=== PATIENT | female | born 1960 | race Caucasian/White ===

== ENCOUNTER → 2016-11-14 | Outpatient (CLI) | payer BC ==
[2016-11-14 13:12] LABS: Basophils % (A) 1 %; CH 30.9; CHCM 33.8; Eosinophils # (A) 0.1 k/uL (0-0.7); Eosinophils % (A) 3 %; HCT 38.6 % (34.0-46.0); HDW 2.59; HGB 13.1 gm/dL (11.4-16.0); Luc # (Auto) 0.09; Luc % (Auto) 2; Lymphocytes # (A) 1.6 k/uL (1.0-4.8); Lymphocytes % (A) 38 %; MCH 31.2 pg (25.0-35.0); MCHC 33.9 g/dL (31.0-37.0); MCV 91.8 fL (80.0-100.0); Mean Platelet Volume 7.7; Monocytes # (A) 0.3 k/uL (0-1.0); Monocytes % (A) 6 %; Neutrophils % (A) 50 %; WBC 4.1 k/uL (3.8-10.6); WBC (Perox) 4.41
[2016-11-14 13:13] LABS: ALT 36 U/L (9-52); AST 25 U/L (14-36); Alkaline Phosphatase 89 U/L (38-126); Anion Gap 11 mmol/L; Blood Urea Nitrogen 11 mg/dL (7-17); Calcium 9.8 mg/dL (8.4-10.2); Carbon Dioxide 26 mmol/L (22-30); Chloride 105 mmol/L (98-107); Cholesterol 207 mg/dL (<200); Glucose 88 mg/dL (74-99); HDL Cholesterol 86 mg/dL (40-60); Non-African American GFR(MDRD) >60 (>60 ml/min/1.73 sqM); Potassium 4.8 mmol/L (3.5-5.1); Sodium 142 mmol/L (137-145); Total Bilirubin 0.5 mg/dL (0.2-1.3); Total Protein 6.7 g/dL (6.3-8.2); Triglycerides 115 mg/dL (<150)
== END | disposition home or self-care (01) ==
LOC: LABWHC1 11:48
PROVIDERS: ATTEND Nurse Practitioner
DX: E78.2 Mixed hyperlipidemia (principal); Z13.21 Encounter for screening for nutritional disorder; Z13.1 Encounter for screening for diabetes mellitus; Z13.0 Encounter for screening for diseases of the blood and blood-forming organs and certain disorders involving the immune mechanism
CPT/HCPCS: 36415; 80053; 80061; 82306; 84443; 85025

== ENCOUNTER → 2017-01-06 | Outpatient (CLI) | payer BC ==
--- NOTE | 2017-01-06 13:24 | BD ---
EXAMINATION TYPE: MG DEXA axial skeleton. DATE OF EXAM: 01/06/2017 COMPARISON: NONE CLINICAL HISTORY: Postmenopausal female Height: 67.2 IN Weight: 221 LBS FRAX RISK QUESTIONS: Alcohol (3 or more units per day): YES Family History (Parent hip fracture): NO Glucocorticoids (More than 3mos): NO (Ex: prednisone, prednisolone, methylprednisolone, dexamethasone, and hydrocortisone). History of Fracture in Adulthood: NO Secondary Osteoporosis: 1. Type 1 Diabetes: NO 2. Hyperthyroidism: NO 3. Menopause before 45: YES AGE 39 4. Malnutrition: NO 5. Chronic liver disease: NO Rheumatoid Arthritis: NO Current Tobacco Use: NO RISK FACTORS HISTORY OF: Active: YES Diet low in dairy products/other sources of calcium: YES Postmenopausal woman: AGE 39 Take estrogen and/or progesterone medications: How lon - 2009 MEDICATIONS: Additional Medications: CALCIUM, VIT D, CYMBALTA, ABILIFY, CHOLESTEROL MEDS EXAM MEASUREMENTS: Bone mineral densitometry was performed using the [employer] System. Bone mineral density as measured about the Lumbar spine is: ----- L1-L4(G/cm2): 1.197 T Score Values are as follows: ----- L2: -0.7 ----- L3: 0.7 ----- L4: 1.0 ----- L1-L4: 0.1 Bone mineral density BASELINE Bone mineral density about the R hip (g/cm2): 0.961 Bone mineral density about the L hip (g/cm2): 0.929 T Score values are as follows: -----R Neck: -0.6 -----L Neck: -0.8 -----R Total: -0.3 -----L Total: 0.1 Bone mineral density BASELINE IMPRESSION: No evidence for osteoporosis or osteopenia. NOTE: T-SCORE=SD OF THE YOUNG ADULT MEAN.
--- NOTE | 2017-01-08 10:20 | MM ---
Reason for exam: screening (asymptomatic). Last mammogram was performed 1 year and 1 month ago. History: Patient is postmenopausal. Family history of breast cancer in maternal aunt at age 60 and breast cancer in sister at age 52. Took estrogen for 10 years beginning at age 39. Physical Findings: A clinical breast exam by your physician is recommended on an annual basis and results should be correlated with mammographic findings. MG Screening Mammo w CAD Bilateral CC and MLO view(s) were taken. Prior study comparison: December 19, 2015, bilateral MG screening mammo w CAD. December 11, 2014, bilateral MG screening mammo w CAD. October 03, 2013, bilateral MG screening mammo w CAD. There are scattered fibroglandular densities. No significant changes when compared with prior studies. ASSESSMENT: Benign, BI-RAD 2 RECOMMENDATION: Routine screening mammogram of both breasts in 1 year.
== END | disposition home or self-care (01) ==
LOC: RADMAMWWP 09:15
PROVIDERS: ATTEND Family Medicine
DX: Z12.31 Encounter for screening mammogram for malignant neoplasm of breast (principal); E55.9 Vitamin D deficiency, unspecified; Z78.0 Asymptomatic menopausal state
CPT/HCPCS: 77080

== ENCOUNTER → 2018-02-19 | Outpatient (CLI) | payer BC ==
[2018-02-19 10:53] LABS: Basophils % (A) 0 %; Eosinophils # (A) 0.1 k/uL (0-0.7); Eosinophils % (A) 2 %; HCT 42.4 % (34.0-46.0); HGB 13.3 gm/dL (11.4-16.0); Lymphocytes # (A) 1.7 k/uL (1.0-4.8); Lymphocytes % (A) 42 %; MCH 28.5 pg (25.0-35.0); MCHC 31.3 g/dL (31.0-37.0); MCV 90.8 fL (80.0-100.0); Mean Platelet Volume 7.5; Monocytes # (A) 0.2 k/uL (0-1.0); Monocytes % (A) 5 %; Neutrophils % (A) 48 %; Platelet Count 258 k/uL (150-450); RBC 4.66 m/uL (3.80-5.40); RDW 13.3 % (11.5-15.5); WBC 4.1 k/uL (3.8-10.6)
[2018-02-19 12:00] LABS: Albumin 4.4 g/dL (3.5-5.0); Calcium 9.9 mg/dL (8.4-10.2); Potassium 4.1 mmol/L (3.5-5.1); Total Bilirubin 0.6 mg/dL (0.2-1.3)
== END ==
LOC: LABWHC1 10:05
PROVIDERS: ATTEND Nurse Practitioner
DX: Z00.00 Encounter for general adult medical examination without abnormal findings (principal); Z13.1 Encounter for screening for diabetes mellitus; Z13.0 Encounter for screening for diseases of the blood and blood-forming organs and certain disorders involving the immune mechanism
CPT/HCPCS: 36415; 80053; 80061; 84443; 85025

== ENCOUNTER → 2018-03-12 | Outpatient (CLI) | payer BC ==
--- NOTE | 2018-03-16 09:01 | MM ---
Reason for exam: screening (asymptomatic). Last mammogram was performed 1 year and 2 months ago. History: Patient is postmenopausal. Family history of breast cancer in maternal aunt at age 60 and breast cancer in sister at age 52. Took estrogen for 10 years beginning at age 39. Physical Findings: A clinical breast exam by your physician is recommended on an annual basis and results should be correlated with mammographic findings. MG 3D Screening Mammo W/Cad Bilateral CC and MLO view(s) were taken. Prior study comparison: January 06, 2017, bilateral MG screening mammo w CAD. December 19, 2015, bilateral MG screening mammo w CAD. The breast tissue is heterogeneously dense. This may lower the sensitivity of mammography. Dense tissues are present in the subareolar regions on a background of scattered densities. No significant changes when compared with prior studies. ASSESSMENT: Negative, BI-RAD 1 RECOMMENDATION: Routine screening mammogram of both breasts in 1 year.
== END | disposition home or self-care (01) ==
LOC: RADMAMWWP 12:50
PROVIDERS: ATTEND Family Medicine
DX: Z12.31 Encounter for screening mammogram for malignant neoplasm of breast (principal)
CPT/HCPCS: 77063; 77067

== ENCOUNTER → 2019-08-25 | Outpatient (CLI) | payer BC ==
--- NOTE | 2019-08-25 11:58 | CT ---
EXAMINATION TYPE: CT abdomen pelvis w con DATE OF EXAM: 08/25/2019 COMPARISON: None INDICATION: Lower abdominal pain. DLP: 949 mGycm, Automated exposure control for dose reduction was used. CONTRAST: 100ml mL of Isovue 300. Study performed with Oral Contrast TECHNIQUE: Axial images were obtained from above the diaphragm to the pubic rami in the axial plane a t 5 mm thick sections. Reconstructed images are reviewed on the computer in the coronal plane. FINDINGS: Limited CT sections are obtained the lung bases. The lung bases are clear. CT ABDOMEN: Liver: 0.9 cm cyst in the lateral right liver. Spleen: Normal Pancreas: Normal Adrenal glands: The adrenal glands are normal. Gallbladder: Normal Kidneys: No masses are evident. No hydronephrosis is present. No cysts are present. Delayed images were obtained through the kidneys, which remain unremarkable. Aorta: Vascular calcification is within the aorta. Inferior vena cava: Normal. CT PELVIS: Loops of bowel within the abdomen and pelvis are normal. There are loops of bowel which are incom pletely distended or lack oral contrast limiting their evaluation. Appendix: Not clearly identified. No suspicious inflammatory changes or dilated tubular structures ar e evident. Urinary bladder: Normal. Genitourinary structures: Uterus and ovaries are not identified. Osseous structures: No suspicious lytic or sclerotic lesions. Sacroiliac joints have mild degenerativ e change. IMPRESSIONS: 1. No suspicious acute changes CT abdomen pelvis. 2. Mild diverticulosis without acute diverticulitis sigmoid colon
== END | disposition home or self-care (01) ==
LOC: RADCTMAIN 10:01
PROVIDERS: ATTEND Surgery
DX: K57.30 Diverticulosis of large intestine without perforation or abscess without bleeding (principal)
CPT/HCPCS: 74177; Q9967

== ENCOUNTER → 2019-09-23 | Outpatient (CLI) | payer BC | LOC: LABWHC1 07:41 | PROVIDERS: ATTEND Surgery | DX: Z11.59 Encounter for screening for other viral diseases (principal) | CPT/HCPCS: 87635 ==

== ENCOUNTER 2019-09-26 08:26 | Day surgery (SDC) | payer BC ==
[2019-09-23 13:00] VITALS: BMI 28.1
[~2019-09-26 08:26] MED LIST: LACTATED RINGERS 1,000 ML IV SCH; LIDOCAINE 1% (10MG/ML) FOR IV START INTRADERMA PRN
[2019-09-26 08:48] VITALS: RESP 18; TEMP 97.8
[2019-09-26] MEDS ORDERED: LACTATED RINGERS 1,000 ML IV ONE ×2 (08:53→09:41)
[2019-09-26] MEDS ORDERED: IV FLUID CONTINUATION 1,000 ML IV ONE (09:41)
[2019-09-26] MEDS ORDERED: PROPOFOL 10 MG/ML 20 ML VIAL IV ONE (09:56)
[2019-09-26] MEDS ORDERED: LIDOCAINE 1% INJ 10MG/ML (20 ML MDV) ONE (09:56)
--- NOTE | 2019-09-26 10:09 | P.GSHP ---
History of Present Illness H&P Date: 09/26/19 Chief Complaint: Change in bowel habits, family history colon cancer, abdominal pain, narrow 59-year-old female seen in the office about one month ago. Patient has had 2 months worth of constipation, narrow stools, diminished appetite. Some increasing fatigue. Feels bloated. Concerned because her mother has a history of colon cancer. She has a history of adenomatous polyps last colonoscopy 5 years ago. CAT scan performed recently showed no acute abnormalities. Past Medical History Past Medical History: GERD/Reflux, Hyperlipidemia, Seizure Disorder Additional Past Medical History / Comment(s): ESSENTIAL TREMORS, LAST SEIZURE 5 YEARS AGO AFTER COLONOSCOPY.,STATES HAVING PAIN IN ABDOMEN & BACK AND CONSTIPATION. History of Any Multi-Drug Resistant Organisms: None Reported Past Surgical History: Appendectomy, Hysterectomy, Orthopedic Surgery Additional Past Surgical History / Comment(s): LEFT ROTATOR CUFF, LEFT KNEE ARTH ROSCOPY., COLONOSCOPY Additional Past Anesthesia/Blood Transfusion Reaction / Comment(s): PATIENT HAD SEIZURE AFTER COLONOSCOPY PROCEDURE 5 YEARS AGO ([facility] BY [facility]UL[facility]) Past Psychological History: Depression Smoking Status: Former smoker Past Alcohol Use History: Occasional Additional Past Alcohol Use History / Comment(s): QUIT SMOKING IN 1999, SMOKED 1 PPD, STARTED SMOKING AGE 13. Past Drug Use History: None Reported - Past Family History Mother Family Medical History: Cancer Additional Family Medical History / Comment(s): COLON CANCER Father Family Medical History: Cancer Additional Family Medical History / Comment(s): LUNG CANCER Sister(s) Family Medical History: Cancer Additional Family Medical History / Comment(s): BREAST CANCER Medications and Allergies Home Medications Medication Instructions Recorded Confirmed Type DULoxetine HCL [Cymbalta] 60 mg PO HS 02/09/15 09/26/19 History Simvastatin [Zocor] 20 mg PO HS 02/09/15 09/26/19 History Calcium Chewable 1 dose PO DAILY 09/23/19 09/26/19 History Multivit with Calcium,Iron,Min 1 each PO DAILY 09/23/19 09/26/19 History [Women's Multivitamin] Pantoprazole Sodium [Protonix] 40 mg PO DAILY 09/23/19 09/26/19 History Topiramate [Topamax] 50 mg PO BID 09/23/19 09/26/19 History Allergies Allergy/AdvReac Type Severity Reaction Status Date / Time No Known Allergies Allergy Verified 09/23/19 12:32 Surgical - Exam Vital Signs Temp Pulse Resp BP Pulse Ox 97.8 F 68 18 130/83 98 09/26/19 08:46 09/26/19 08:46 09/26/19 08:46 09/26/19 08:46 09/26/19 08:46 Physical exam: General: Well-developed, well-nourished HEENT: Normocephalic, sclerae nonicteric Abdomen: Nontender, nondistended Extremities: No edema Neuro: Alert and oriented Assessment and Plan (1) Change in bowel habits Narrative/Plan: Will proceed with colonoscopy at this time. Current Visit: Yes Status: Acute Code(s): R19.4 - CHANGE IN BOWEL HABIT SNOMED Code(s): 259219777
--- NOTE | 2019-09-26 10:22 | P.PCN ---
Date of Procedure: 09/26/19 Procedure(s) Performed: PREOPERATIVE DIAGNOSIS: Change in bowel habits, family history of colon cancer, narrow stools, decreased appetite, history of adenoma POSTOPERATIVE DIAGNOSIS: Minimal diverticulosis PROCEDURE: Colonoscopy ANESTHESIA: MAC SURGEON: Ryder Mcnally M.D. SPECIMENS: None ENDOSCOPIC PROCEDURE: The patient was placed on the endoscopy table in the left decubitus position. The Olympus colonoscope was inserted into the anus and passed under direct visualization to the base of the cecum. The appendiceal orifice was visualized. From that point the scope was slowly withdrawn inspecting all surfaces carefully. There were no neoplastic inflammatory or polypoid lesions throughout the cecum, ascending, transverse, descending, sigmoid and rectum. There was at all sigmoid diverticulosis noted. Digital rectal examination was normal. The patient was taken to the recovery room in stable condition per anesthesia guidelines. RECOMMENDATIONS: Patient still having crampy abdominal pain and irregular bowel habits. Will discuss options of MR enterography.
[2019-09-26 10:46] VITALS: BP 111/60; PULSE 66
== END 2019-09-26 11:23 | disposition home or self-care (01) ==
LOC: ORWHC2ENDO 08:26
PROVIDERS: ATTEND Surgery
DX: K57.30 Diverticulosis of large intestine without perforation or abscess without bleeding (principal); R63.0 Anorexia; R53.83 Other fatigue; R14.0 Abdominal distension (gaseous); K21.9 Gastro-esophageal reflux disease without esophagitis; E78.5 Hyperlipidemia, unspecified; G40.909 Epilepsy, unspecified, not intractable, without status epilepticus; G25.0 Essential tremor; M54.9 Dorsalgia, unspecified; F32.9 Major depressive disorder, single episode, unspecified; Z86.010 Personal history of colon polyps; Z90.49 Acquired absence of other specified parts of digestive tract; Z90.710 Acquired absence of both cervix and uterus; Z98.890 Other specified postprocedural states; Z87.891 Personal history of nicotine dependence; Z79.899 Other long term (current) drug therapy; Z80.0 Family history of malignant neoplasm of digestive organs; Z80.1 Family history of malignant neoplasm of trachea, bronchus and lung; Z80.3 Family history of malignant neoplasm of breast
CPT/HCPCS: 45378; J2001; J2704

== ENCOUNTER → 2020-04-30 | Outpatient (CLI) | payer BC ==
--- NOTE | 2020-05-01 07:46 | MR ---
MRI CERVICAL SPINE: CLINICAL HISTORY: DDD and HNP per order. Headache with neck pain since June 2019 causing pain or weakness and right arm per patient. TECHNIQUE: Multiplanar, multisequence imaging of the cervical spine is performed without IV contrast. COMPARISON: None. FINDINGS: Sagittal images of the cervical spine show the craniocervical junction to appear within nor mal limits. The cervical and upper thoracic spinal cord is normal in course, caliber, and signal. Th ere is slight grade 1 retrolisthesis C3 on C4, C4 on C5, C5 on C6, and C6 on C7. Mild disc space narr owing C4-C5 level otherwise the vertebral body and intravertebral disk heights are normal. The bone marrow signal intensity is within normal limits. Axial images show the C2-C3 level to appear within normal limits. Axial images at C3-C4 level show spondylolisthesis with broad-based right paracentral disc protrusion effacing anterolateral thecal sac sagittal image 9 and axial image 38, there is asymmetric mild righ t-sided neural foraminal narrowing. Axial images at the C4-C5 level less prominent spondylolisthesis with small right paracentral disc pr otrusion mildly effaces the anterior thecal sac, patent bilateral neural foramina. Axial images at C5-C6 level show posterior spur disc complex effacing the anterior thecal sac, patent bilateral neural foramina, subtle spondylolisthesis. Axial images at C6-C7 level shows spondylolisthesis with right paracentral spur disc complex effacing ventral thecal sac, there is mild bilateral neural foraminal narrowing. Axial images at C7-T1 level are within normal limits. IMPRESSION: Multilevel spondylolisthesis and mild degenerative changes in the cervical spine as detai led above.
== END | disposition home or self-care (01) ==
LOC: RADMRIMAIN 15:22
PROVIDERS: ATTEND Orthopaedic Surgery
DX: M43.12 Spondylolisthesis, cervical region (principal); M47.812 Spondylosis without myelopathy or radiculopathy, cervical region
CPT/HCPCS: 72141

== ENCOUNTER 2020-12-04 11:58 | Emergency (ER) | payer BC ==
[2020-12-04 12:26] VITALS: RESP 18
[2020-12-04] MEDS ORDERED: methylPREDNISolone SOD SUCCI 125 MG/2 ML VIAL IM ONE (12:43)
--- NOTE | 2020-12-04 14:17 | XR ---
Thoracic spine and lumbar spine HISTORY: Pain 3 views of the thoracic spine, 3 views of the lumbar spine There is a slight spinal curvature. Thoracic and lumbar vertebral bodies show preserved height and harpal ne mineralization. There is multilevel spondylosis. Some loss of disc height is present at interverte bral levels of the mid to lower thoracic spine, L2-3, L3-4, L5-S1 and there is vacuum phenomenon pres ent at L4-5. Sclerosis present in the posterior elements of the lower lumbar spine. IMPRESSION: Degenerative disc disease and facet arthropathy. Slight spinal curvature.
--- NOTE | 2020-12-04 14:24 | ED ---
Back Pain HPI - General Chief Complaint: Back Pain/Injury Stated Complaint: Spinal Pain Time Seen by Provider: 12/04/20 12:27 Source: patient, RN notes reviewed Limitations: no limitations - History of Present Illness Initial Comments: Patient is a 60-year-old female that presents to emergency room complaining of chronic back pain. She notes that she used to have a back specialist that she saw that she no longer goes to. She noted that she had cervical nerve ablation failed. She noted that she needs network were summoned open a door and it jolted her causing her to irritate her back. She notes that she has no difficulty urinating or having bowel movements. She denied any saddle anesthesia. She denied any injury or trauma. She presented emergency from to get an MRI, she was informed that MRIs are use exclusively for back injuries or traumas was suspicion for spinal cord injury. She denied any chest pain shortness of breath headache nausea vomiting diarrhea constipation fever fatigue chills. - Related Data Home Medications Medication Instructions Recorded Confirmed Topiramate [Topamax] 50 mg PO BID 09/23/19 12/04/20 DULoxetine HCL [Cymbalta] 30 mg PO HS 12/04/20 12/04/20 RABEprazole SODIUM [Aciphex] 20 mg PO BID 12/04/20 12/04/20 Sucralfate [Carafate] 1 gm PO TID 12/04/20 12/04/20 Allergies Allergy/AdvReac Type Severity Reaction Status Date / Time No Known Allergies Allergy Verified 12/04/20 13:53 Review of Systems ROS Statement: Those systems with pertinent positive or pertinent negative responses have been documented in the HPI. ROS Other: All systems not noted in ROS Statement are negative. Past Medical History Additional Past Medical History / Comment(s): chronic back/ neck pain. History of Any Multi-Drug Resistant Organisms: None Reported Additional Past Surgical History / Comment(s): neck surgeries Past Psychological History: No Psychological Hx Reported Smoking Status: Never smoker Past Alcohol Use History: None Reported Past Drug Use History: None Reported General Exam Limitations: no limitations General appearance: alert, in no apparent distress Head exam: Present: atraumatic, normocephalic, normal inspection Eye exam: Present: normal appearance, PERRL, EOMI. Absent: scleral icterus, conjunctival injection, periorbital swelling Neck exam: Present: normal inspection Respiratory exam: Present: normal lung sounds bilaterally. Absent: respiratory distress, wheezes, rales, rhonchi, stridor Cardiovascular Exam: Present: regular rate, normal rhythm, normal heart sounds. Absent: systolic murmur, diastolic murmur, rubs, gallop, clicks GI/Abdominal exam: Present: soft, normal bowel sounds. Absent: distended, tenderness, guarding, rebound, rigid Extremities exam: Present: normal inspection, full ROM, normal capillary refill. Absent: tenderness, pedal edema, joint swelling, calf tenderness Back exam: Present: normal inspection, tenderness (Mild tenderness mid to low back) Neurological exam: Present: alert, oriented X3, CN II-XII intact Psychiatric exam: Present: normal affect, normal mood Skin exam: Present: warm, dry, intact, normal color. Absent: rash Course Vital Signs 12/04/20 12:22 Temperature 98.2 F Pulse Rate 75 Respiratory 18 Rate Blood Pressure 153/85 O2 Sat by Pulse 100 Oximetry Medical Decision Making - Medical Decision Making 60-year-old female complaining of chronic back pain. X-rays of the lumbar and thoracic spine, 125 mg of Solu-Medrol ordered. Patient declined pain medication as she did not want to take any. Case discussed with Dr. Han, patient can follow-up with primary care and outpatient coding specialist. - Radiology Data Radiology results: report reviewed, image reviewed X-ray thoracic and lumbar spine: Degenerative disc disease and facet neuropathy. Slight spinal curvature. Disposition Clinical Impression: Mechanical back pain, Thoracic back pain, Strain of lumbar region Disposition: HOME SELF-CARE Condition: Stable Instructions (If sedation given, give patient instructions): Acute Low Back Pain (ED) Additional Instructions: Please return to the Emergency Department if symptoms worsen or any other concerns. Follow-up with primary care and promotions specialist for potential MRI prescription. Continue take medications at home as prescribed. Take Tylenol and Motrin as needed for pain. Avoid any strenuous activity or exercise. Is patient prescribed a controlled substance at d/c from ED?: No Referrals: Eric Hdez MD [Primary Care Provider] - 1-2 days Sundeep Carter DO [Doctor of Osteopathic Medicine] - 1-2 days Time of Disposition: 14:23
[2020-12-04 14:35] VITALS: BP 118/76; PULSE 66; TEMP 98.5
== END 2020-12-04 14:34 | disposition home or self-care (01) ==
LOC: EC 11:58
DX: S39.012A Strain of muscle, fascia and tendon of lower back, initial encounter (principal); M54.6 Pain in thoracic spine; X58.XXXA Exposure to other specified factors, initial encounter
CPT/HCPCS: 72070; 72100; 99283; 96372; J2930